=== PATIENT | male | born 1945 | race Caucasian/White ===

== ENCOUNTER 2017-04-02 22:32 | Emergency (ER) | payer MEDICARE, OTHER ==
[~2017-04-02] VITALS: Ht 172.7 cm; Wt 120.5 kg
[2017-04-02 22:34] VITALS: BP 124/71; PULSE 58; RESP 16; O2SAT 98
[2017-04-02] MEDS ORDERED: FURO40TA4 PO (22:44)
[2017-04-02] MEDS ORDERED: BUPR150T12 PO (22:44)
[2017-04-02] MEDS ORDERED: INSU100I SUBCUTA079 (22:44)
[2017-04-02] MEDS ORDERED: INSU100I13 SUBCUTA079 (22:44)
[2017-04-02] MEDS ORDERED: SPIR50TA2 PO (22:44)
[2017-04-02] MEDS ORDERED: SIMV20TA4 PO (22:44)
[2017-04-02] MEDS ORDERED: PROP20TA5 PO (22:44)
--- NOTE | 2017-04-02 22:47 | ED.REPORT ---
HPI-Extremity Problem Upper Date of Service Apr 02, 2017 ED Provider: Eladio Garcia DO Pt is a 71 year old male with a history of DM and HTN who presents to the ED complaining of right shoulder pain after a ground level fall. He denies LOC and head injury. The pt was pulling weeds, when he turned and lost his footing, causing him to fall onto his right shoulder. He laid on the ground for 1 hour before getting help. Nursing Notes Stated Complaint: GROUND LEVEL FALL, RIGHT SHOULDER PAIN Chief Complaint: Extremity Trauma Nursing Notes Reviewed: Yes Allergies: Coded Allergies: amoxicillin (Verified Allergy, Intermediate, flushed , nausea, 04/02/17) clavulanic acid (Verified Allergy, Intermediate, flushed , nausea, 04/02/17 ) hydrocodone (Verified Adverse Reaction, Severe, Nausea,Vomiting, 04/02/17) Scheduled Bupropion ER (Bupropion ER) 150 Mg Tablet.er 150 MG PO DAILY Insulin Aspart (NovoLOG U-100 Pen) 100 Unit/Ml Insuln.pen 1 UNITS [id number] BIDWM sliding scale Insulin Glargine (Lantus U100 Solostar Insulin Pen) 100 Unit/1 Ml Insuln.pen 40 UNITS [id number] HS Propranolol HCl (Propranolol HCl) 20 Mg Tablet 20 MG PO BID Simvastatin (Simvastatin) 20 Mg Tablet 20 MG PO DAILY Spironolactone (Spironolactone) 50 Mg Tablet 100 MG PO QAM Miscellaneous Medications Furosemide (Furosemide) 40 Mg Tablet 40 MG PO General Time Seen by MD: 22:47 Chief Complaint Shoulder injury right Hx Obtained From: Patient, Other family... Arrived By: Walk-in Onset Occurred: Just prior to arrival Symptom Duration: Since onset Location: : Shoulder right Quality: Painful Severity: Current: Moderate Severity: Maximum: Moderate Recent Healthcare: No recent doctor visit, No recent hospitalization Similar Sx Previous: No Past Medical History Past Medical History Kidney cancer Non-alcoholic liver cirrhosis Reports: Diabetes mellitus, Hypertension Past Surgical History Denies Smoking History Unknown if Ever Smoker Social History Alcohol Use: "Social" Drug Use: Denies drug use Other Social History: Good social support Ambulatory Status Independent Review of Systems Denies head injury Musculoskeletal: Reports: Extremity pain Neurologic: Denies: Change LOC, Syncope Complete sys rev & neg: except as marked. Physical Exam Initial Vital Signs Vital Signs (First) Date Time Temp Pulse Resp B/P Pulse Ox O2 Delivery O2 Flow Rate FiO2 04/02/17 22:34 36.9 58 16 124/71 98 Room Air Initial VS: Reviewed Head / Eyes: Atraumatic, Normocephalic Neck: Supple, Full range of motion Respiratory: Breath sounds normal, Clear to auscultation, No respiratory distress Cardiovascular: Regular rate & rhythm, Heart sounds normal, Intact distal pulses Abdomen / GI: Soft, Non-tender Lower Extremities: Vascular intact, Neuro intact Skin: Warm, Dry, No cyanosis Neurologic: Alert, Oriented, Nonfocal Psychiatric: Mood/affect normal, Behavior normal General/Constitutional: Awake, Alert, Cooperative Upper Extremity / MS: Neurologic intact, Vascular intact Tenderness of right shoulder. Interpretation & Diagnostics Lab Results Interpretation Test 04/02/17 23:32 Hold Purple Top Tube Received (Received) Hold Blue Top Tube Received (Received) Hold Carrier Top Tube Received (Received) X-Ray Interpretation Xray Interpretation: Comminuted proximal humoral fracture X-Ray Ordered: Shoulder right Interpretation / Wet Read by: Wet read ED physician Re-Eval/Medical Decision Med Decision/Clinical Course Pain control does not seem to be a problem. Rather than nausea associated with the opiates. He took some IV Phenergan to break his nausea. He is going to try Phenergan or Zofran and some Percocet for pain. I expect he is going to need opiate pain relief. Due to his kidney disease is probably not prudent for him to take NSAIDs. I left the note with the on-call orthopedic voice mailbox. Recommend close outpatient follow-up. CT scan head and neck are not indicated based on Nexus criteria and no head injury. Source of Hx: Old records Re-Evaluation/Progress : Time of Eval: 00:56 Re-Evaluation/Progress Note: Pt rechecked. Informed pt of plan for discharge. Pt understands and agrees with plan for discharge. F/U instructions and RTER warnings given. All questions addressed. Counseled Regarding: Diagnosis, Lab results, Need for follow-up, When/why to return to ED Discharge & Departure Impression: Primary Impression: Closed fracture of right proximal humerus Encounter type: initial encounter Fracture morphology: other fracture Fracture alignment: nondisplaced Qualified Code: S42.294A - Other nondisplaced fracture of upper end of right humerus, initial encounter for closed fracture Disposition: Home Discharge Condition All VS Reviewed: Yes Condition: Stable Patient Instructions: Proximal Humerus Fracture (DC) Additional Instructions: The x-rays show that you have a proximal humerus fracture. Take 1-2 Percocet every 6 hours for pain. You may need to premedicate with Phenergan or with Zofran. To prevent nausea. You may take 1 Phenergan every 8 hours or 1 Zofran every 6 hours. All of this stuff is sedating so do not drive or drink alcohol while taking these medicines. Do not take any other acetaminophen products while taking the Percocet. Keep your shoulder immobilized until you are seen by orthopedics. Call Dr. Modi's office in the morning and tell them that you have a humerus fracture and you been referred for urgent follow-up. I am calling the after hours on-call number to let them know that you were seen. Do not hesitate to return if any problems or any new or worsening conditions. Referrals: [facility] (PCP) Gary Modi MD Attestation Portions of this note were transcribed by Marya Chen. I, Dr. Garcia personally performed the history, physical exam and medical decision-making; I reviewed and confirmed the accuracy of the information in the transcribed note. Signed by : Santi Hadley, 04/03/17 and 00:40. copies to: [facility] Todd P DO Apr 02, 2017 22:47 Marya Reid Apr 02, 2017 23:31
[2017-04-02] MEDS ORDERED: Ondansetron 2 mg/mL 2 mL Inj IVPUSH PRN (23:10)
[2017-04-02] MEDS: HYDROmorphone 0.5 mg/0.5 mL iSecure Syringe IVPUSH PRN (23:32)
[2017-04-03] MEDS: HYDROmorphone 0.5 mg/0.5 mL iSecure Syringe IVPUSH PRN (00:12)
[2017-04-03] MEDS ORDERED: Sodium Chloride LOK Flush 10 mL Syringe IVFLUSH SCH (00:30)
[2017-04-03] MEDS ORDERED: _Ondansetron ODT 4 mg Tablet PO PRN (01:00)
[2017-04-03] MEDS ORDERED: Promethazine Inj 12.5 MG in Dextrose 5%-Pha MIX 50 ML IV ONE (01:00)
[2017-04-03] MEDS ORDERED: _oxyCODONE/APAP 5-325 mg Tablet PO PRN (01:00)
[2017-04-03 01:31] VITALS: BP 103/51; PULSE 61; RESP 16; O2SAT 96
--- NOTE | 2017-04-03 08:22 | DRSVH ---
PROCEDURE: X-RAY RIGHT SHOULDER, MINIMUM TWO VIEWS ([id number]) INDICATIONS: fall , trauma TECHNIQUE: 2 views of the shoulder were acquired. COMPARISON: [facility], CR, SHOULDER MIN 2VW (RT), 05/27/2007, 23:42. FINDINGS: Bones: There is a mildly comminuted fracture of the right humeral head and neck with mild impaction of the femoral neck component. There is suggestion of displacement of the greater tuberosity compone nt by approximately 1 cm. Visualized ribs appear intact. Soft tissues: No suspicious soft tissue calcifications. IMPRESSION: 1. Comminuted impacted fracture of the right humeral head and neck. Dictated by: Justin Morales M.D. on 04/03/2017 at 8:19 Approved by: Justin Morales M.D. on 04/03/2017 at 8:20
== END 2017-04-03 01:33 | disposition home or self-care (01) ==
LOC: SED 22:32
DX: S42.294A Other nondisplaced fracture of upper end of right humerus, initial encounter for closed fracture (principal); W18.30XA Fall on same level, unspecified, initial encounter; Y93.89 Activity, other specified; Y92.89 Other specified places as the place of occurrence of the external cause; Y99.8 Other external cause status; I10 Essential (primary) hypertension; E11.9 Type 2 diabetes mellitus without complications; Z79.4 Long term (current) use of insulin; Z88.1 Allergy status to other antibiotic agents; Z88.5 Allergy status to narcotic agent; Z88.8 Allergy status to other drugs, medicaments and biological substances
CPT/HCPCS: 73030; 96374; 96375; 96376; 99285; J1170; J2405; J2550